=== PATIENT | male | born 1990 | race Caucasian/White ===

== ENCOUNTER 2025-04-26 18:36 | Emergency (ER) | payer OTHER, SELFPAY ==
--- NOTE | 2025-04-26 18:38 | ED.EAR ---
HPI - Ear Problem General Chief complaint: Ear Stated complaint: LT Ear Pain Time Seen by Provider: 04/26/25 18:37 Source: patient Mode of arrival: ambulatory Limitations: no limitations History of Present Illness HPI Narrative: Manuel is a 35-year-old male patient presenting to the clinic today with complaints a left ear pain x3 days. He reports no recent swimming. He reports no fevers, chills, body aches, nasal congestion, or headache. No discharge coming from the ear. Related Data Allergies Allergy/AdvReac Type Severity Reaction Status Date / Time No Known Allergies Allergy Verified 04/26/25 18:42 Review of Systems Review of Systems: Pertinent positives per HPI. Patient denies any fever, chills, rash, headache, visual changes, dizziness, cough, runny nose, sore throat, shortness of breath, chest pain, palpitations, nausea, vomiting, diarrhea, constipation, abdominal pain, or any urinary issues. PMFSH Comments At the time of my signature, I reviewed and agree with the nursing past medical, surgical, social, and family history. There is no relevant family history pertinent to the patient complaint. Exam Narrative: General: Well-developed, well nourished, in no apparent distress Head: Normocephalic, atraumatic Eyes: Pupils equally round and reactive to light bilaterally, EOM intact, sclera and conjunctive clear, no discharge, lids normal Ears: TMs intact and clear, right ear canals clear, left ear canal red, swollen, tenderness to palpation over the tragus, no drainage, grossly hearing normal. Nose: Nares patent, no discharge, no inflammation, no sinus tenderness. Mouth: Oropharynx without lesions or masses, good dentition, MMM. Neck: Supple, trachea midline, no enlargement of anterior or posterior cervical nodes, no thyroid masses or goiter palpable. Cardio: Regular rate and rhythm, s1 and s2 normal, no murmur appreciated. Resp: Clear to auscultation bilaterally anteriorly and posteriorly, no rhonchi, rales, wheezing or rubs Course Course Emergency Course: Portions of this record may have been created with voice recognition software. Level of Care: Express Care Visit Vital Signs Vital signs: Vital Signs Temperature 36.6 C 04/26/25 18:45 Pulse Rate 74 04/26/25 18:45 Respiratory Rate 16 04/26/25 18:45 Blood Pressure 129/77 04/26/25 18:45 Pulse Oximetry 100 04/26/25 18:45 Oxygen Delivery Room Air 04/26/25 18:45 Temperature 36.6 C 04/26/25 18:45 Pulse Rate 74 04/26/25 18:45 Respiratory Rate 16 04/26/25 18:45 Blood Pressure 129/77 04/26/25 18:45 Pulse Oximetry 100 04/26/25 18:45 Oxygen Delivery Room Air 04/26/25 18:45 Vital signs reviewed Medical Decision Making MDM Narrative Medical decision making narrative: At the time of visit patient is resting comfortably on the exam table. Patient appears to be nontoxic. Complaints a left ear pain x3 days. He reports no recent swimming. He reports no fevers, chills, body aches, nasal congestion, or headache. No discharge coming from the ear. Plan: I suspect patient has left otitis externa. Prescription for ofloxacin ear drops was sent to the pharmacy. Supportive measures were discussed with the patient and they voiced understanding discharge instructions and agrees to treatment plan. Return precautions reviewed Differential Diagnosis Differential Diagnosis: Otitis media, otitis externa, eustachian tube dysfunction, cerumen impaction, upper respiratory infection, serous otitis Vital Signs Vital Signs: Vital Signs Temperature 36.6 C 04/26/25 18:45 Pulse Rate 74 04/26/25 18:45 Respiratory Rate 16 04/26/25 18:45 Blood Pressure 129/77 04/26/25 18:45 Pulse Oximetry 100 04/26/25 18:45 Oxygen Delivery Room Air 04/26/25 18:45 Temperature 36.6 C 04/26/25 18:45 Pulse Rate 74 04/26/25 18:45 Respiratory Rate 16 04/26/25 18:45 Blood Pressure 129/77 04/26/25 18:45 Pulse Oximetry 100 04/26/25 18:45 Oxygen Delivery Room Air 04/26/25 18:45 Discharge Plan Discharge Clinical Impression: Otitis externa Qualifiers: Otitis externa type: diffuse Chronicity: acute Laterality: left Qualified Code(s): H60.312 - Diffuse otitis externa, left ear Patient Disposition: Home Condition: Stable Instructions: Antibiotic Form, Swimmer's Ear (ED) Additional Instructions: Take any prescribed medications only as directed-ofloxacin ear drops Tylenol/motrin as needed for pain May use heating pad to alleviate pain If you get recurrent ear infections it may be warranted to follow up with ENT. Follow up with your PCP in 3-5 days if symptoms persist. Patient Language: Citizen Of [place] Prescriptions: New ofloxacin 0.3 % drops 5 drp otic (ear) BID 7 Days Qty: 5 0RF Follow-up/Referrals: UNKNOWN,DOCTOR [Non-Staff] Time of Disposition: 18:49 Quality NIHSS Nursing Documentation ED NIHSS nursing documentation: reviewed/agree
--- OUTSIDE RECORDS SUMMARY | 2025-04-26 18:41 | XMS_ITS | Clinical Summary ---
Author Organization [facility] Address [address] [place] [id number] Care Team Providers Care Manager Power Name Role Phone None, Provider MD Primary Care Provider Unavaila ble Allergies No known active allergies Medications No known medications Active Problems No known active problems Immunizations Immunization Administration Dates Next Due Dtp 03/08/1995, 2,1990,07/05,1990 Hepatitis B Pediatric 11/11/1999,07/14/1999,05/1999 Hib (Generic) 07/11/1991,01/29/1991 MMR 03/08/1995,07/11/1991 MODERNA COVID-19 (12+) MRNA, LNP-S, PF, 100 MCG/ 0.5 ML DOSE 12/31/2020,12/03/2020 Meningococcal (Generic) 02/06/2008 Opv 03/08/1995, 2,1990,07/05,1990 Td 12/25/2003 Tdap (Generic) 02/06/2008 Family History Medical History Relation Comments Heart Disease Father Cancer Mother Relation Status Comments Father Mother Social History Tobacco Use Types Packs/Day Years Used Date Smoking Tobacco: Never Smokeless Tobacco: Never Alcohol Use Standard Drinks/Week Comments Yes 0 (1 standard drink = 0.6 oz pur e alcohol) PHQ-2 Answer Date Recorded PHQ-2 Score - If the patient scores above 3, please move on to questions 3-9 0 04/23/2021 Sex and Gender Information Value Date Recorded Sex Assigned at Not on file Legal Sex Male 11:05 AM CDT Gender Identity Not on file Sexual Orientation Not on file Last Filed Vital Signs Vital Sign Reading Time Taken Comments Blood Pressure 112/72 04/23/2021 11:27 AM CDT Pulse 92 04/23/2021 11:27 AM CDT Temperature 36.7 C (98 F) 04/23/2021 11:27 AM CDT Respiratory Rate 18 04/23/2021 11:27 AM CDT Oxygen Saturation 99% 04/23/2021 11:27 AM CDT Inhaled Oxygen Concentration - - Weight 68 kg (150 lb) 04/23/2021 11:27 AM CDT Height 193 cm (6' 4) 04/23/2021 11:27 AM CDT Body Mass Index 18.26 04/23/2021 11:27 AM CDT Plan of Treatment Health Maintenance Due Date Last Done Comments Annual Physical 1993 Hepatitis C 02/20/2008 HPV Vaccines (1 - 3-dose SCDM series) 2017 DTaP, Tdap and Td Vaccines (3 - Td or Tdap) 02/05/2018 02/06/2008, 12/25/2003, 03/08/1995, Additional history exists COVID-19 Vaccine (3 - 2023- season) 2024 12/31/2020, 12/03/2020 Hepatitis B Vaccines Completed 11/11/1999, 07/14/1999, 05/13/1999 Meningococcal Vaccine Aged Out 02/06/2008 No peña luis carlos eligible based on patient's age to complete this topic Meningococcal B Vaccine Aged Out No l onger eligible based on patient's age to complete this topic Pneumococcal Vaccine: Pediatrics (0 to 5 Years) and At-Risk Patients (6 to 49 Years) Aged Out No longer eligible based on patient's age to complete this topic RSV Immunizations Under 20 Months Aged Out No longer eligible based on patient's age to complete this topic [place] [address] [address] Care Teams Manager Power Relationship Specialty Start Date End Date None, Provider, PCP - General 04/23/21
[2025-04-26 18:45] VITALS: BP 129/77; PULSE 74; RESP 16; TEMP 36.6; O2SAT 100
== END 2025-04-26 18:56 | disposition home or self-care (01) ==
PROVIDERS: Emergency Provider Nurse Practitioner Family
DX: H60.312 Diffuse otitis externa, left ear (principal); Z86.16 Personal history of COVID-19
CPT/HCPCS: 99203; G0463